=== PATIENT | female | born 1990 | race Caucasian/White ===

== ENCOUNTER 2024-03-13 09:28 | Outpatient (CLI) | payer OTHER ==
[~2024-03-13] VITALS: Ht 157.5 cm; Wt 72.7 kg
[2024-03-13 09:35] VITALS: BP 113/70; O2SAT 100
[2024-03-13] MEDS: ACETAMINOPHEN 650 MG PO ONE (09:56)
[2024-03-13] MEDS: methylPREDNISolone 125MG 2ML VIAL IV ONE (09:56)
[2024-03-13] MEDS: diphenhydrAMINE 25MG CAP PO ONE ×2 (09:56→14:02)
[2024-03-13] MEDS: OCRELIZUMAB 300 MG in NS 250 ML IV ONE (10:22)
[2024-03-13 11:00] VITALS: BP 114/64; O2SAT 100
[2024-03-13 11:30] VITALS: BP 109/92; O2SAT 99
[2024-03-13 12:00] VITALS: BP 112/66; O2SAT 98
[2024-03-13 12:30] VITALS: BP 110/57; O2SAT 98
== END 2024-03-13 14:30 ==
LOC: M INFU 09:28
PROVIDERS: ATTEND Psychiatry & Neurology Neurology
DX: G35 Multiple sclerosis (principal)
CPT/HCPCS: 96365; 96366; 96375; J2350; J2919

== ENCOUNTER 2024-03-30 09:45 | Outpatient (CLI) | payer OTHER ==
[~2024-03-30] VITALS: Ht 157.5 cm; Wt 75.0 kg
[2024-03-30 09:45] VITALS: BP 136/63; O2SAT 95
[2024-03-30] MEDS: ACETAMINOPHEN 650 MG PO ONE (09:52)
[2024-03-30] MEDS: methylPREDNISolone 125MG 2ML VIAL IV ONE (09:52)
[2024-03-30] MEDS: diphenhydrAMINE 25MG CAP PO ONE (09:52)
[2024-03-30] MEDS: OCRELIZUMAB 300 MG in NS 250 ML IV ONE (11:00)
[2024-03-30 11:30] VITALS: BP 109/53; O2SAT 96
[2024-03-30 12:00] VITALS: BP 110/60; O2SAT 99
[2024-03-30 12:30] VITALS: BP 102/57; O2SAT 97
[2024-03-30 13:00] VITALS: BP 111/64; O2SAT 97
[2024-03-30 13:45] VITALS: BP 107/69; O2SAT 98
== END 2024-03-30 13:57 ==
LOC: M INFU 09:45 → EDUNIT# 10:00 → M INFU 13:57
PROVIDERS: ATTEND Psychiatry & Neurology Neurology
DX: G35 Multiple sclerosis (principal)
CPT/HCPCS: 96365; 96366; 96375; J2350; J2919

== ENCOUNTER → 2025-03-03 | Outpatient (CLI) | payer OTHER | LOC: M EKG 16:23 | PROVIDERS: ATTEND Internal Medicine | DX: R00.2 Palpitations (principal) ==